=== PATIENT | female | born 1990 | race Caucasian/White ===

== ENCOUNTER 2021-09-08 21:45 | Emergency (ER) | payer OTHER, SELFPAY ==
[2021-09-08] VITALS (10 sets, daily range): BP systolic 106–123; BP diastolic 79–104; PULSE 102–127; RESP 17–26; TEMP 36.7; O2SAT 94–99
--- NOTE | ~2021-09-08 | XR_ITS ---
EXAMINATION: XR chest 2V EXAM DATE: 09/09/2021 00:17 INDICATION: seizure,SOB . TECHNIQUE: Frontal and lateral projections of the chest obtained and reviewed. There is no prior serafin dy for comparison. FINDINGS: The lungs are clear. There are no pleural effusions. The cardiomediastinal silhouette is within normal limits. There is no pneumothorax suspected. The bones and soft tissues are unremarkab le. IMPRESSION: No acute cardiopulmonary findings. Reviewed, dictated and finalized at location [facility]
--- NOTE | 2021-09-08 21:52 | ECG_ITS ---
Measurements Intervals [place] Rate: 121 P: 23 NH: 114 QRS: 42 QRSD: 86 T: 58 QT: 322 QTc: 459 Interpretive Statements SINUS TACHYCARDIA WITH SHORT NH INTERVAL EARLY PRECORDIAL R/S TRANSITION BORDERLINE T WAVE ABNORMALITY- ANTERIOR LEADS BASELINE ARTIFACT- I, II, III, AVR, AVL, AVF, V1-V6 ABNORMAL ECG Electronically Signed On 09-09-2021 7:09:49 [employer] by Hayes Wilkes D.O.
[2021-09-08 22:30] LABS: Basophils Percent Auto 0.2 % (0.2-1.2); Eosinophils Absolute Auto 0.3 K/mm3 (0-0.3); Eosinophils Percent Auto 1.9 % (0-4.4); Hematocrit 37.4 % (37.0-47.0); Hemoglobin 13.3 g/dL (12.0-15.0); Immature Granulocyte Absolute 0.08 K/mm3 (0.00-0.031); Immature Granulocyte Percent A 0.6 % (0-0.5); Lymphocytes Absolute Auto 1.62 K/mm3 (0.9-3.2); Lymphocytes Percent Auto 12.1 % (18.3-44.2); Mean Corpuscular HGB Conc 35.6 g/dl (32-36); Mean Corpuscular Hemoglobin 33.7 pg (26-34); Mean Corpuscular Volume 94.7 fl (80-100); Mean Platelet Volume 10.6 fl (7.4-10.4); Monocytes Absolute Auto 0.4 K/mm3 (0.1-0.6); Monocytes Percent Auto 3.1 % (2.6-8.5); Neutrophils Percent Auto 82.1 % (45.5-73.1); Platelet Count Result 296 k/mm3 (150-375); Red Blood Count 3.95 M/mm3 (4.2-5.4); Red Cell Distribution Width 12.6 % (11.5-14.5); White Blood Count 13.4 K/mm3 (4.5-10.0)
[2021-09-08 22:38] LABS: Alanine Aminotransferase 16 U/L (4-35); Albumin Level 5.1 g/dL (3.5-5.1); Alkaline Phosphatase 101 U/L (38-126); Anion Gap 19 mmol/L (8-16); Aspartate Amino Transferase 20 U/L (14-36); Bilirubin,Total 0.7 mg/dL (0.2-1.3); Blood Urea Nitrogen 10 mg/dL (7-17); Calcium 9.7 mg/dL (8.4-10.2); Carbon Dioxide 13 mmol/L (22-30); Chloride 107 mmol/L (98-107); Estimated CRCL calculation 108 ml/min; Estimated Glomerular Filt Rate > 60; Glucose 179 mg/dL (65-110); Potassium 4.1 mmol/L (3.4-5.0); Sodium 139 mmol/L (137-145)
[2021-09-09] MEDS: SODIUM CHLORIDE 0.9% IV 1,000 ML 999 ML IV CONT (00:10)
[2021-09-09 00:47] LABS: Ethanol < 10 mg/dL (<10)
[2021-09-09 01:24] LABS: Add Urine Microscopic? YES; Appearance Urine Clear (Clear); Bilirubin Urine Negative (Negative); Blood Urine 1+ (Negative); Color Urine Yellow (Yellow); Glucose Urine UA Negative (Negative); Ketones Urine 2+ mg/dL (Negative); Leukocyte Esterase Ur Negative LEU/UL (Negative); Mucus Urine Rare /lpf; Nitrate Urine Negative (Negative); Protein Urine 2+ mg/dL (Negative); RBC Urine 0-2 /hpf (0-2); Specific Grav Ur 1.024 (1.001-1.035); Squamous Epithelial Cell Urine Rare /hpf (Few); Urobilinogen Urine Negative mg/dL (<2.0); WBC Urine 0-3 /hpf
[2021-09-09 01:27] LABS: Amphetamine Screen Urine Negative (Negative); Barbiturate Screen Urine Negative (Negative); Benzodiazepines Screen Urine Positive (Negative); Cannabinoid Screen Urine Negative (Negative); Cocaine Screen Urine Negative (Negative); Methadone Screen Urine Negative (Negative); Opiate Screen Urine Negative (Negative); Phencyclidine Screen Urine Negative (Negative)
--- NOTE | 2021-09-09 01:42 | ED.GENADULT ---
HPI - General Adult General Chief complaint: Seizure Stated complaint: possible seizure Time Seen by Provider: 09/08/21 23:08 History of Present Illness HPI narrative: Patient is a 31-year-old female who presents ER with concerns for possible seizure. Reports she is at home when she started to have an aura that something was scratching the back of her throat. Her mom reports she then put her hands in her mouth and started shaking on the right side of her face and her arm started to flex. This lasted approximately 30 seconds and then she had heavy breathing afterwards. They report patient has history of seizures as a child and her last seizure was when she was 11 years old. She is on no medication for seizure control. She reports she has not been eating well over the last couple days due to running out of her Xanax. Reports chronic Xanax use of 1 mg 3 times daily. She then moved here from [place] and january and was seeing a mental health provider in [place] who cut her dose to 0.5 mg twice daily and attempt to taper her off. Patient has no reports of injury from the episode this evening. She had no tongue biting. Related Data Home Medications Medication Instructions Recorded Confirmed alprazolam 1 mg tablet 1 mg PO TID PRN 08/30/21 Allergies Allergy/AdvReac Type Severity Reaction Status Date / Time No Known Allergies Allergy Verified 09/08/21 21:51 Review of Systems Review of Systems: All systems reviewed & are unremarkable except as noted in HPI and below Constitutional: Constitutional: Denies chills, Reports fatigue and Denies fever(s) ENT: Reports dysphagia, Denies nasal congestion and Reports sore throat Cardiovascular: Cardiovascular: Denies chest pain, Denies rapid heart rate and Denies radiating jaw, neck or arm pain Respiratory: Respiratory: Denies cough, Denies dyspnea and Denies wheezing Gastrointestinal: Gastrointestinal: Denies abdominal pain, Denies nausea and Denies vomiting Neurologic: Denies focal weakness and Denies numbness Comments: Seizure Psychiatric: Psychiatric: Reports anxiety PMFSH Past Medical History Medical History Anxiety Hypothyroidism Migraine Seizure Social History Social History Smoking status: Current every day smoker Tobacco type: cigarettes Alcohol intake: current Substance use: former Other substance usage details: cbd oil Exam Narrative: GENERAL: Well-appearing, well-nourished, and in no acute distress. HEAD: Normocephalic, atraumatic. EYES: PERRL and EOMI. ENT: Mucous membranes moist. No bite rocha to tongue. CHEST: Clear to auscultation. No respiratory distress. HEART: Regular rate and rhythm. Normal peripheral pulses. ABDOMEN: Soft, nontender, nondistended. EXTREMITIES: Normal range of motion. No edema. NEURO: Alert and oriented x3. PSYCH: Normal mood and affect. Course Course Emergency Course: Patient hydrated no longer tachycardic. External medication review shows patient had 60 tabs of Xanax 0.5 mg filled on 08/31/2021. This does not seem consistent with what patient reported to me earlier when she stated that she ran out of her Xanax 3 days ago. She likely has been abusing her Xanax, patient didn't have any explanation regarding this. It is likely she did run out a few days ago and may have had a withdrawal seizure. Patient is refusing to eat and drink in the ER but is tolerating oral secretions without issue. Chart review also shows patient has been reporting chronic dysphagia that is felt this may be due to an enlarged thyroid which they are obtaining an ultrasound of. Vital Signs Vital signs: Vital Signs Temperature 98.0 F 09/08/21 21:44 Pulse Rate 127 H 09/08/21 21:44 Respiratory Rate 22 H 09/08/21 21:44 Blood Pressure 123/80 09/08/21 21:44 Pulse Oximetry 95 09/08/21 21:44 Temperature 98.0 F 09/08/21 21:44 Pul
[2021-09-09 02:41] VITALS: PULSE 88; RESP 22; O2SAT 97
[2021-09-09 03:40] VITALS: BP 107/87; PULSE 80; RESP 16; O2SAT 97
[2021-09-09] MEDS: diazePAM (*CRX) 5 MG TABLET PO (03:40)
== END 2021-09-09 03:43 | disposition home or self-care (01) ==
PROVIDERS: Emergency Provider Emergency Medicine
DX: R56.9 Unspecified convulsions (principal); E86.0 Dehydration; F13.10 Sedative, hypnotic or anxiolytic abuse, uncomplicated; F41.9 Anxiety disorder, unspecified; E03.9 Hypothyroidism, unspecified; F17.210 Nicotine dependence, cigarettes, uncomplicated; R00.0 Tachycardia, unspecified; R94.31 Abnormal electrocardiogram [ECG] [EKG]
CPT/HCPCS: 36415; 51701; 71046; 80053; 80307; 81001; 81025; 85025; 93005; 96360; 96361; 99283; A9270; J7030

== ENCOUNTER 2022-03-16 14:33 | Emergency (ER) | payer OTHER, SELFPAY ==
[2022-03-16 14:38] VITALS: BP 105/79; PULSE 114; RESP 16; TEMP 35.8; O2SAT 97
--- NOTE | 2022-03-16 14:39 | ED.NECK ---
HPI - Neck Pain/Injury General Chief Complaint: Neck Pain/Injury Stated Complaint: pain from neck to back/swelling face Time Seen by Provider: 03/16/22 14:40 Source: patient and RN notes reviewed History of Present Illness HPI Narrative: Patient is a 31-year-old female who presents the urgent care with complaints of posterior neck pain radiating to the low back and left-sided facial swelling. Patient states that it started 5 days ago without any injury or trauma. Patient states she also now has a rash that showed up to the left side of the back of her head with a small area to the right. Patient denies of any history of shingles. Denies any autoimmune disorder. No other acute complaints. Denies of any fevers. No acute distress noted. Patient aware of the plan of care. Some parts of this dictation were generated by voice recognition software and may contain typographical and/or grammatical inaccuracies. Related Data Home Medications Medication Instructions Recorded Confirmed alprazolam 1 mg tablet (Xanax) 1 mg PO TID 02/23/22 03/16/22 buspirone 10 mg tablet 10 mg PO BID 02/23/22 03/16/22 clonidine HCl 0.2 mg tablet 0.2 mg PO QHS 02/23/22 03/16/22 Allergies Allergy/AdvReac Type Severity Reaction Status Date / Time No Known Allergies Allergy Verified 03/16/22 14:47 Review of Systems Review of Systems: CONSTITUTIONAL: Denies fever, chills, or sweats. EYES: Denies visual changes, redness, or discharge. ENT: Denies rhinorrhea, congestion, sore throat, or otalgia. CARDIOVASCULAR: Denies chest pain, palpitations, or edema. RESPIRATORY: Denies cough or dyspnea. GASTROINTESTINAL: Denies abdominal pain, nausea, vomiting, or diarrhea. GENITOURINARY: Denies dysuria or hematuria. SKIN: Reports of an itchy painful rash to the back of the head MUSCULOSKELETAL: Reports of posterior neck pain radiating down into the low back NEUROLOGIC: Denies headache, numbness, or weakness. All other systems reviewed are negative, except as documented in HPI. [facility] Past Medical History Medical History Anxiety Hypothyroidism Migraine Seizure Social History Social History Smoking status: Current every day smoker Tobacco type: cigarettes Alcohol intake: current Substance use: former Other substance usage details: cbd oil Comments At the time of my signature, I reviewed and agree with the nursing past medical, surgical, social, and family history. There is no relevant family history pertinent to the patient complaint. Exam Narrative: GENERAL: This is a well-nourished, well-developed patient, in no apparent distress. HEAD: normocephalic, atraumatic. EYES: PERRL. Sclera clear/white. Vision is grossly intact. EARS: External ears normal, auditory canals clear and without drainage, TMs normal without perforation. Hearing grossly intact. NOSE: External nose normal with no obvious nasal discharge, nares without redness, no rhinorrhea. THROAT: Mucous membranes moist, posterior pharynx clear. NECK: non-tender without lymphadenopathy. Range of motion lacking due to pain. Able to flex right and left, chin tuck and head tilt with moderate pain; diffuse moderate cervical tenderness CARDIOVASCULAR: Regular rate and rhythm without murmurs, gallops, or rubs. RESPIRATORY: Clear to auscultation. Breath sounds equal bilaterally. No wheezes, rales, or rhonchi. SKIN: Pustular/vesicular erythemic tender dermatitis to the left occipital with scattered lesion to the right NEURO: awake, alert, and oriented to person, place and time. There were no obvious focal neurologic abnormalities. EXTREMITIES: No clubbing, cyanosis, or edema. No joint tenderness, effusion, or edema noted. No calf tenderness. Negative Homans sign bilaterally. BACK: Moderate tenderness diffuse to the lumbar region Course Course Level of Care: Express Care Visit Vital Signs Vit
[2022-03-16 15:26] VITALS: PULSE 126; TEMP 36.9
== END 2022-03-16 15:29 | disposition home or self-care (01) ==
PROVIDERS: Emergency Provider Nurse Practitioner Family; PCP Nurse Practitioner
DX: M54.2 Cervicalgia (principal); B02.9 Zoster without complications; F17.219 Nicotine dependence, cigarettes, with unspecified nicotine-induced disorders; E03.9 Hypothyroidism, unspecified; F41.9 Anxiety disorder, unspecified
CPT/HCPCS: 99213; G0463

== ENCOUNTER 2024-02-29 14:34 | Emergency (ER) | payer OTHER, SELFPAY ==
[2024-02-29 15:31] VITALS: BP 142/102; PULSE 125; RESP 16; TEMP 36.6; O2SAT 98
--- NOTE | 2024-02-29 15:33 | ED.NAVMDI ---
HPI - Nausea/Vomiting/Diarrhea General Chief complaint: Nausea/Vomiting/Diarrhea Stated complaint: Nause, vomiting Time Seen by Provider: 02/29/24 15:34 Focused HPI: this is a 33-year-old female that presents to the emergency department for nausea and vomiting. Ongoing over the last couple of days. Reports associated diarrhea. She has not been able to keep anything down. Reports low abdominal pain and back pain. Denies fevers. GENERAL: Uncomfortable, well-nourished, and in no acute distress. HEAD: Normocephalic, atraumatic. CHEST: Clear to auscultation. ?No respiratory distress. HEART: Regular rate and rhythm.? NEURO: ?Alert and oriented x3. Patient screened in triage and initial orders placed.? ?Additional care and disposition to be based upon?diagnostic testing and treatment. Related Data Home Medications Medication Instructions Recorded Confirmed Buspirone BYMOUTH 01/23/24 01/23/24 alprazolam 1 mg tablet 1 mg PO BID 01/23/24 01/23/24 citalopram 20 mg tablet 20 mg PO DAILY 01/23/24 01/23/24 clonidine HCl 0.2 mg tablet 0.2 mg PO DAILY 01/23/24 01/23/24 famotidine 20 mg tablet 20 mg PO DAILY 01/23/24 01/23/24 Allergies Allergy/AdvReac Type Severity Reaction Status Date / Time aspirin Allergy Unknown Unknown Verified 02/29/24 14:35 gabapentin AdvReac Mild Dizziness Verified 02/29/24 14:35 PMFSH Past Medical History Medical History (Updated 03/05/24 @ 10:18 by Lorie Adams PA-C) Anxiety Arthritis Chronic GERD Hypothyroidism IBS (irritable bowel syndrome) Migraine Seizure Family History Family History (Updated 01/23/24 @ 13:58 by Jenifer Carreno MA) Father Asthma Hypertension Mother Breast cancer Hypertension Depression Disorder of thyroid Grandparent Depression Heart disease Cerebrovascular accident Grandparent Diabetes mellitus Heart disease Social History Social History (Updated 01/23/24 @ 14:00 by Jenifer Carreno MA) Smoking status: Former smoker Tobacco type: cigarettes Alcohol intake: current Alcohol use details: Rarely Substance use: former Other substance usage details: cbd oil Do You Feel Safe in your Home?: Yes Lack of Transportation: No Lack of Food: Never True Current Housing: I Have Housing Concerned About Future Housing: No Difficulty Paying Gas/Electric Bills: No Difficulty Paying for Meds: No Currently Unemployed: No Education: High School Diploma/GED Difficulty w/ Childcare or Family Care: No Living arrangements: with family Gender identity (if verbalized by the patient): Female Agree to blood products: Yes Course Vital Signs Vital signs: Vital Signs Temperature 98 F 02/29/24 15:31 Pulse Rate 125 H 02/29/24 15:31 Respiratory Rate 16 02/29/24 15:31 Blood Pressure 142/102 H 02/29/24 15:31 Pulse Oximetry 98 02/29/24 15:31 Oxygen Delivery Room Air 02/29/24 15:31 Temperature 97.8 F 02/29/24 16:33 Pulse Rate 76 02/29/24 16:33 Respiratory Rate 18 02/29/24 16:33 Blood Pressure 143/90 H 02/29/24 16:33 Pulse Oximetry 100 02/29/24 16:33 Oxygen Delivery Room Air 02/29/24 15:31 Discharge Plan Discharge Clinical Impression: Nausea and vomiting Patient Disposition: [facility] After Seen by Prov Condition: Guarded Prognosis Prescriptions: No Action Buspirone BYMOUTH Rx Instructions: 10Mg QD citalopram 20 mg tablet 20 mg PO DAILY alprazolam 1 mg tablet 1 mg PO BID clonidine HCl 0.2 mg tablet 0.2 mg PO DAILY famotidine 20 mg tablet 20 mg PO DAILY levothyroxine 100 mcg tablet 100 mcg PO DAILY Qty: 30 3RF ondansetron 8 mg tablet,disintegrating 8 mg PO Q12H PRN (Reason: nausea and vomiting) Qty: 30 3RF Follow-up/Referrals: Yoli Peter APRN [Primary Care Provider] -
[2024-02-29 16:33] VITALS: BP 143/90; PULSE 76; RESP 18; TEMP 36.6; O2SAT 100
--- NOTE | 2024-02-29 16:34 | PC.NURSE ---
Pt mother to intake desk states my daughter cant breathe and she is in pain and throwing up again. This RN brought pt back to triage bay for reeval and vitals taken, VSS. Pt thrashing, crying, moaning, guarding. States Im having 11/10 pain right now! I feel like I am gonna pass out. Pt mother agitated and states she is wanting to have the pt evaluated now or she is going to leave elsewhere. This RN discussed triage process/ER flow currently with pt mother. Pt re directed to w/r in NAD.
--- NOTE | 2024-02-29 16:46 | PC.NURSE ---
Pt ambulated with mother to exit after stating We aren't going to wait anymore, we are going somewhere else.
== END 2024-02-29 16:46 | disposition left against medical advice (07) ==
LOC: ANHED 16:53
PROVIDERS: Emergency Provider Physician Assistant; PCP Nurse Practitioner Adult Health
DX: R11.2 Nausea with vomiting, unspecified (principal); E03.9 Hypothyroidism, unspecified; K21.9 Gastro-esophageal reflux disease without esophagitis; K58.9 Irritable bowel syndrome, unspecified; M19.90 Unspecified osteoarthritis, unspecified site; F41.9 Anxiety disorder, unspecified; Z87.891 Personal history of nicotine dependence; Z79.899 Other long term (current) drug therapy
CPT/HCPCS: 99281

== ENCOUNTER 2024-04-16 01:20 | Day surgery (SDC) | payer OTHER, SELFPAY ==
[2024-04-12 14:43] VITALS: BMI 34.7
--- NOTE | 2024-04-12 15:21 | PC.NURSE ---
Report to the Outpatient Waiting Room, entrance under the green pavilion located off [facility], at 0600 on 04-16-24. Planned Procedure Time: 0730. Time changes happen often and if your time is changed the preop area will call you the afternoon before. - You and your visitor will be asked to self-screen and do not enter if you have any COVID symptoms. - A mask is optional within the hospital at this time. Patients may have clear liquids (water, carbonated beverages, clear teas, apple juice) until 3 hours prior to surgery with a maximum of 20 ounces. 0430 - No food from midnight until time of surgery - Infants may have breast milk until 4 hours before surgery, formula 6 hours prior to surgery. - Children will be allowed to drink immediately following surgery. If applicable, please bring a bottle or sippy cup to assist with drinking. Juice, water, soda, and popsicles are readily available. For infants on formula, please bring formula the day of surgery. Pacifiers are allowed. Take the following medications with a SIP of water the morning of surgery: alprazolam if needed, buspirone, citalopram, levothyroxine DO NOT STOP ANY OF YOUR OTHER PRESCRIPTION MEDICATIONS PRIOR TO SURGERY ?EXCEPT THE FOLLOWING Medications to discontinue per physician: ibuprofen Date to take last dose: Per Dr. Alberto Please no make-up, nail sinhala, hairspray, perfume, deodorant, or body powder the day of surgery. No jewelry (including any body piercings) or valuables the day of surgery, leave them at home. Please take a shower or bath the night before, or the morning of, surgery with an antibacterial soap. Wear comfortable, loose fitting clothing. Children are encouraged to wear pajamas. - Jewelry must be removed prior to entering the operating room. Rings and piercings that are not removed may be cut off. - The hospital will not accept responsibility for valuables. - Please leave all valuables, including medications, at home the day of surgery. If you are going home after surgery, a licensed minibus driver must drive you home. - NO public transportation without another adult if you receive anesthesia. - We recommend that an adult stay with you for 24 hours following discharge. - We also recommend that you do not drive, make important decision, drink alcoholic beverages, or take any drugs that were not prescribed by your health care provider for at least 24 hours after your discharge time. For Pediatric surgeries, we recommend two adults accompany the child home. Follow any additional instructions given to you from your surgeon. If you or anyone in your household have experienced Covid symptoms in the past week, please notify your surgeon or the nurse liaison at the phone number below for possible testing. Telephone instructions given to Danyel Wynn and asked if any additional questions and then verbalized understanding. Patient advised to call surgeon office or pre surgery nurse liaison [phone] if any additional questions.
--- NOTE | 2024-04-15 14:35 | WPDANESEPPF ---
Anes - Initial Pre Proc Eval Procedure: Operation Date: 04/16/24 07:30 Proposed Procedures p Diagnostic Laparoscopy - Harshal Alberto MD Date/Time: 04/15/24 14:35 Surgeon: Harshal Alberto MD Pre Op Diagnosis: Pain in Pelvis Patient Data Age: 33 Gender: F Height: 1.65 m Weight: 94.8 kg Allergies Allergy/AdvReac Type Severity Reaction Status Date / Time aspirin AdvReac Mild Nausea Verified 04/12/24 14:35 gabapentin AdvReac Mild Dizziness Verified 04/12/24 14:35 Home Medications Medication Instructions Recorded Confirmed Type alprazolam 1 mg tablet 1 mg PO BID PRN Anxiety 01/23/24 04/12/24 History citalopram 20 mg tablet 20 mg PO DAILY 01/23/24 04/12/24 History clonidine HCl 0.2 mg tablet 0.2 mg PO DAILY 01/23/24 04/12/24 History famotidine 20 mg tablet 20 mg PO DAILY 01/23/24 04/12/24 History levothyroxine 100 mcg tablet 100 mcg PO DAILY #30 tabs 01/23/24 04/12/24 Rx ondansetron 8 mg disintegrating 8 mg PO Q12H PRN nausea and 01/23/24 04/12/24 Rx tablet vomiting #30 tabs acetaminophen 325 mg tablet 650 mg PO Q4-6H PRN pain 04/12/24 04/12/24 History (Tylenol) buspirone 10 mg tablet 10 mg PO DAILY 04/12/24 04/12/24 History ibuprofen 200 mg tablet 400 mg PO Q6H PRN pain 04/12/24 04/12/24 History Results Review: All pre-operative results and documents have been reviewed as part of the pre-operative evaluation. [facility] Past Medical History Medical History (Updated 03/06/24 @ 00:01 by Irina Estrada) Anxiety Arthritis Chronic GERD Hypothyroidism IBS (irritable bowel syndrome) Migraine Seizure Family History Family History (Updated 01/23/24 @ 13:58 by Jenifer Carreno MA) Father Asthma Hypertension Mother Breast cancer Hypertension Depression Disorder of thyroid Grandparent Depression Heart disease Cerebrovascular accident Grandparent Diabetes mellitus Heart disease Social History Social History (Updated 01/23/24 @ 14:00 by Jenifer Carreno MA) Smoking packs per day: 1 Smoking cigarettes per day: 20.0 Years smoked: 14 Smoking pack-years: 14.00 Smoking status: Former smoker Tobacco type: cigarettes and e-cigarettes/vaping Second hand tobacco smoke exposure: No Alcohol intake: current Alcohol use details: rarely Substance use: never Substance use type: does not use Other substance usage details: cbd oil Do You Feel Safe in your Home?: Yes Lack of Transportation: No Lack of Food: Never True Current Housing: I Have Housing Concerned About Future Housing: No Difficulty Paying Gas/Electric Bills: No Difficulty Paying for Meds: No Currently Unemployed: No Education: High School Diploma/GED Difficulty w/ Childcare or Family Care: No Living arrangements: with family Gender identity (if verbalized by the patient): Female Spiritual care concerns: No Agree to blood products: Yes Anes - Eval Final PreProcedure Day of Procedure 04/15/24 14:35 Results Review: All pre-operative results and documents have been reviewed as part of the pre-operative evaluation. Informed Consent: The patient's anesthetic plan and its attendant risks and benefits were discussed with the patient/family/POA. Questions were solicited and answers provided to the satisfaction of the patient/family/POA.
[2024-04-16] VITALS (8 sets, daily range): BP systolic 114–168; BP diastolic 86–109; PULSE 90–121; RESP 14–18; TEMP 36.1; O2SAT 95–100; BMI 34.6
[2024-04-16] MEDS: LACTATED RINGERS 1,000 ML 30 ML IV CONT ×2 (06:45→09:02)
[2024-04-16] MEDS: ACETAMINOPHEN 500 MG TABLET 1000 MG PO (06:54)
--- NOTE | 2024-04-16 06:54 | WPDANESEPPF ---
Anes - Initial Pre Proc Eval Procedure: Operation Date: 04/16/24 07:30 Proposed Procedures p Diagnostic Laparoscopy - Harshal Alberto MD Date/Time: 04/16/24 06:54 Surgeon: Harshal Alberto MD Pre Op Diagnosis: Pain in Pelvis Patient Data Age: 33 Gender: F Height: 1.65 m Weight: 94.8 kg Allergies Allergy/AdvReac Type Severity Reaction Status Date / Time aspirin AdvReac Mild Nausea Verified 04/12/24 14:35 gabapentin AdvReac Mild Dizziness Verified 04/12/24 14:35 Home Medications Medication Instructions Recorded Confirmed Type alprazolam 1 mg tablet 1 mg PO BID PRN Anxiety 01/23/24 04/12/24 History citalopram 20 mg tablet 20 mg PO DAILY 01/23/24 04/12/24 History clonidine HCl 0.2 mg tablet 0.2 mg PO DAILY 01/23/24 04/12/24 History famotidine 20 mg tablet 20 mg PO DAILY 01/23/24 04/12/24 History levothyroxine 100 mcg tablet 100 mcg PO DAILY #30 tabs 01/23/24 04/12/24 Rx ondansetron 8 mg disintegrating 8 mg PO Q12H PRN nausea and 01/23/24 04/12/24 Rx tablet vomiting #30 tabs acetaminophen 325 mg tablet 650 mg PO Q4-6H PRN pain 04/12/24 04/12/24 History (Tylenol) buspirone 10 mg tablet 10 mg PO DAILY 04/12/24 04/12/24 History ibuprofen 200 mg tablet 400 mg PO Q6H PRN pain 04/12/24 04/12/24 History Patient hx anesthesia problems: none Family hx anesthesia problems: none Results Review: All pre-operative results and documents have been reviewed as part of the pre-operative evaluation. [facility] Past Medical History Medical History Anxiety Arthritis Chronic GERD Hypothyroidism IBS (irritable bowel syndrome) Migraine Seizure Family History Family History Father Asthma Hypertension Mother Breast cancer Hypertension Depression Disorder of thyroid Grandparent Depression Heart disease Cerebrovascular accident Grandparent Diabetes mellitus Heart disease Social History Social History Smoking packs per day: 1 Smoking cigarettes per day: 20.0 Years smoked: 14 Smoking pack-years: 14.00 Smoking status: Former smoker Tobacco type: cigarettes and e-cigarettes/vaping Second hand tobacco smoke exposure: No Alcohol intake: current Alcohol use details: rarely Substance use: never Substance use type: does not use Other substance usage details: cbd oil Do You Feel Safe in your Home?: Yes Lack of Transportation: No Lack of Food: Never True Current Housing: I Have Housing Concerned About Future Housing: No Difficulty Paying Gas/Electric Bills: No Difficulty Paying for Meds: No Currently Unemployed: No Education: High School Diploma/GED Difficulty w/ Childcare or Family Care: No Living arrangements: with family Gender identity (if verbalized by the patient): Female Spiritual care concerns: No Agree to blood products: Yes Anes - Eval Final PreProcedure Day of Procedure 04/16/24 06:54 Patient weight: obese Heart: regular rate and rhythm Lungs: clear to auscultation Airway: Mallampati scale class II Neurological: alert and oriented Last oral intake: >/= 8 hours ASA classification: III Emergent: no Anesthetic plan: proceed Anesthesia type and monitoring: general ETT and standard monitoring Results Review: All pre-operative results and documents have been reviewed as part of the pre-operative evaluation. Informed Consent: The patient's anesthetic plan and its attendant risks and benefits were discussed with the patient/family/POA. Questions were solicited and answers provided to the satisfaction of the patient/family/POA.
[2024-04-16] MEDS: KETOROLAC 15 MG/ML VIAL (*BKC) IV PUSH (06:55)
[2024-04-16 07:06] LABS: BEDSIDEPREGUCG Negative
--- NOTE | 2024-04-16 07:17 | WPDHPUPDATE1 ---
History and Physical Update Update Date/Time: 04/16/24 07:17 History and Physical has been reviewed, including an updated exam of the patient. There are NO changes in the patient's condition. Risks, benefits, and alternatives have been discussed and questions answered. Patient agrees to proceed with procedure.
--- NOTE | 2024-04-16 09:13 | W.PM.PROC2 ---
Procedure Note - Detailed Date of Procedure 04/16/24 Pre-op Diagnosis Pain in Pelvis Left ovarian cyst Post-op Diagnosis Same Procedure Performed Diagnostic laparoscopy, laparoscopic left ovarian cystectomy, adhesiolysis-20 minutes, resection of right adnexal mass Surgeon Harshal Alberto MD Anesthesia General Indications Pelvic pain Findings on the right side,within the fallopian tube at the cornual area there was a firm mass with vascularity -1.5 cm. Adhesions on the left adnexa to the anterior pelvic wall, 3 cm left ovarian cyst Description of Procedure The patient was taken to the operating room. She was prepped and draped in the dorsal lithotomy position after induction general anesthesia. A 5 mm incision was made with a scalpel on the abdominal skin in the left upper quadrant of the abdomen. A 5 mm trocar was inserted into the intra-abdominal cavity under direct visualization the scope. In the same fashion a 5 mm left lower quadrant trocar was inserted and a 5 mm infraumbilical trocar was inserted. left ovarian cystectomy was performed with sharp and blunt dissection with cautery. Adhesiolysis was performed left adnexa using sharp and blunt dissection and cautery. The right adnexal mass was removed using LigaSure cautery. The pelvis was irrigated. The pneumoperitoneum was reduced. The trocars were removed. Skin was closed with subcuticular 4 micro. The patient's incisions were covered with Dermabond. She was taken recovery room in stable condition. Sponge lap and needle counts were correct x2. Estimated Blood Loss 10 Complications No immediate complications Condition Stable Disposition Same day
[2024-04-16] MEDS: ONDANSETRON INJ 4 MG/2 ML VIAL IV PUSH (09:24)
[2024-04-16] MEDS: LABETALOL HCL INJ 100 MG/20 ML VIAL 10 MG IV PUSH (09:24)
[2024-04-16] MEDS: oxyCODONE HCL (*CRX) 5 MG TAB IR PO (09:53)
== END 2024-04-16 10:26 | disposition home or self-care (01) ==
PROVIDERS: PCP Nurse Practitioner Adult Health; Visit Provider Obstetrics & Gynecology
PROC: (CPT 49320; principal; 2024-04-16 07:30)
DX: D27.0 Benign neoplasm of right ovary (principal); N80.101 Endometriosis of right ovary, unspecified depth; N83.12 Corpus luteum cyst of left ovary; N83.02 Follicular cyst of left ovary; N73.6 Female pelvic peritoneal adhesions (postinfective); E03.9 Hypothyroidism, unspecified; K21.9 Gastro-esophageal reflux disease without esophagitis; F41.9 Anxiety disorder, unspecified; Z87.891 Personal history of nicotine dependence; E66.9 Obesity, unspecified; Z68.34 Body mass index [BMI] 34.0-34.9, adult
CPT/HCPCS: 58662; 88304; 88305; A9270; J1100; J1170; J1596; J1885; J2250; J2405; J2704; J3010; J7030; J7120